=== PATIENT | male | born 1980 | race Caucasian/White ===

== ENCOUNTER 2019-09-17 18:25 | Emergency (ER) | payer MEDICARE, MEDICAID ==
[~2019-09-17] VITALS: Ht 188 cm; Wt 104.5 kg
[2019-09-17 18:26] VITALS: BP 134/96
[2019-09-17] MEDS ORDERED: orphenadrine citrate 60mg/2ml inj. IM ONE (19:55)
[2019-09-17] MEDS ORDERED: ketorolac trometh inj. 60 MG/2 ML VIAL IM ONE (19:55)
[2019-09-17] MEDS ORDERED: CYCL-1 PO (20:08)
== END 2019-09-17 20:34 | disposition home or self-care (01) ==
LOC: ER 18:26
DX: S39.012A Strain of muscle, fascia and tendon of lower back, initial encounter (principal); G89.29 Other chronic pain; M62.830 Muscle spasm of back; M25.552 Pain in left hip; Z79.899 Other long term (current) drug therapy; X58.XXXA Exposure to other specified factors, initial encounter; Y93.89 Activity, other specified; Y92.89 Other specified places as the place of occurrence of the external cause; Y99.8 Other external cause status
CPT/HCPCS: 96372; 99283; J1885; J2360